=== PATIENT | male | born 1985 | race American Indian/Alaskan Native ===

== ENCOUNTER 2021-05-07 14:02 | Emergency (ER) | payer SELFPAY ==
[2021-05-07] MEDS ORDERED: ONDANSETRON 4 MG/2 ML INJ IV ONE (15:24)
[2021-05-07] MEDS ORDERED: SODIUM CHLORIDE 0.9% 1000 ML 1,000 ML IV ONE (15:24)
[2021-05-07] MEDS ORDERED: ACETAMINOPHEN 325 MG TAB PO ONE (15:24)
--- NOTE | 2021-05-07 15:34 | Emergency Department Report ---
ED Fever HPI - General Chief Complaint: Nausea/Vomiting/Diarrhea Stated Complaint: BODY PAIN Time Seen by Provider: 05/07/21 14:59 - History of Present Illness Initial Comments: Patient is a 35-year-old male presents emergency room complaints of a fever that began yesterday. He has associated chills, generalized body aches, nausea, vomiting, dry cough. He denies any shortness of breath, chest pain, abdominal pain, diarrhea. He has not been vaccinated for COVID-19. He denies any known sick contacts or recent travel. No allergies to medications. No past medical history. ED Review of Systems ROS: Stated complaint: BODY PAIN Other details as noted in HPI Comment: All other systems reviewed and negative ED Past Medical Hx - Past Medical History Previous Medical History?: No - Surgical History Additional Surgical History: R ANKLE 2005. - Social History Smoking Status: Current Every Day Smoker - Medications Home Medications: Home Medications Medication Instructions Recorded Confirmed Last Taken Type Ibuprofen [Motrin] 800 mg PO Q8H #30 tablet 12/16/13 Unknown Rx Benzonatate [Tessalon Perles] 100 mg PO Q8HR PRN #10 capsule 05/07/21 Unknown Rx Ondansetron [Zofran Odt] 4 mg PO Q8HR PRN #10 tab.rapdis 05/07/21 Unknown Rx guaiFENesin ER [Mucinex ER] 600 mg PO Q12H #14 tablet.er 05/07/21 Unknown Rx ED Physical Exam - General Limitations: No Limitations General appearance: alert, in no apparent distress - Head Head exam: Present: atraumatic, normocephalic - Eye Eye exam: Present: normal appearance - ENT ENT exam: Present: mucous membranes moist - Respiratory Respiratory exam: Present: normal lung sounds bilaterally. Absent: respiratory distress, wheezes, rales, rhonchi, stridor, chest wall tenderness, accessory muscle use, decreased breath sounds, prolonged expiratory - Cardiovascular Cardiovascular Exam: Present: normal rhythm, tachycardia - Neurological Exam Neurological exam: Present: alert, oriented X3 - Psychiatric Psychiatric exam: Present: normal affect, normal mood - Skin Skin exam: Present: warm, dry, intact ED Course Vital Signs 05/07/21 05/07/21 14:20 16:41 Temperature 101.3 F H 100.9 F H Pulse Rate 115 H 88 Respiratory 18 16 Rate Blood Pressure 134/80 Blood Pressure 120/71 [Left] O2 Sat by Pulse 93 98 Oximetry ED Medical Decision Making - Lab Data Result diagrams: 05/07/21 15:51 05/07/21 15:51 Lab Results 05/07/21 05/07/21 05/07/21 Range/Units 15:24 15:51 15:51 WBC 8.0 (4.5-11.0) K/mm3 RBC 4.81 (3.65-5.03) M/mm3 Hgb 13.7 (11.8-15.2) gm/dl Hct 43.3 (35.5-45.6) % MCV 90 (84-94) fl MCH 29 (28-32) pg MCHC 32 (32-34) % RDW 14.5 (13.2-15.2) % Plt Count 285 (140-440) K/mm3 Lymph % (Auto) 4.5 L (13.4-35.0) % [place] % (Auto) 14.8 H (0.0-7.3) % Eos % (Auto) 0.8 (0.0-4.3) % Baso % (Auto) 0.3 (0.0-1.8) % Lymph # (Auto) 0.4 L (1.2-5.4) K/mm3 [place] # (Auto) 1.2 H (0.0-0.8) K/mm3 Eos # (Auto) 0.1 (0.0-0.4) K/mm3 Baso # (Auto) 0.0 (0.0-0.1) K/mm3 Seg Neutrophils % 79.6 H (40.0-70.0) % Seg Neutrophils # 6.4 (1.8-7.7) K/mm3 Sodium 136 L (137-145) mmol/L Potassium 5.2 H (3.6-5.0) mmol/L Chloride 99.1 (98-107) mmol/L Carbon Dioxide 21 L (22-30) mmol/L Anion Gap 21 mmol/L BUN 7 L (9-20) mg/dL Creatinine 0.9 (0.8-1.3) mg/dL Estimated GFR > 60 ml/min BUN/Creatinine Ratio 8 % Glucose 86 (75-100) mg/dL Calcium 9.3 (8.4-10.2) mg/dL Total Bilirubin 0.40 (0.1-1.2) mg/dL AST 82 H (5-40) units/L ALT 37 (7-56) units/L Alkaline Phosphatase 100 (35-129) units/L Total Protein 8.2 (6.3-8.2) g/dL Albumin 4.5 (3.9-5) g/dL Albumin/Globulin Ratio 1.2 % Influenza A (Rapid) Negative (Negative) Influenza B (Rapid) Negative (Negative) Vital Signs 05/07/21 05/07/21 14:20 16:41 Temperature 101.3 F H 100.9 F H Pulse Rate 115 H 88 Respiratory 18 16 Rate Blood Pressure 134/80 Blood Pressure 120/71 [Left] O2 Sat by Pulse 93 98 Oximetry - Radiology Data Radiology results: report reviewed Ordering Physician: NEHA MARES Date of Service: 05/07/21 Procedure(s): XR chest routine 2V Accession Number(s): [id number] cc: NEHA MARES Fluoro Time In Minutes: CHEST 2 VIEWS INDICATION: cough, fever. COMPARISON: none FINDINGS: Support devices: None. Heart: Within normal limits. Lungs/pleura: No acute air space or interstitial disease. No pneumothorax. Additional findings: None. IMPRESSION: Normal chest x-ray Signer Name: Stanlye Lopez Jr, MD Signed: 05/07/2021 3:45 PM Workstation Name: [id number] Transcribed By: TTR Dictated By: STANLEY LOPEZ JR, MD Electronically Authenticated By: STANLEY LOPEZ JR, MD Signed Date/Time: 05/07/21 154 DD/ 44 TD/TT: - Medical Decision Making Patient is a 35-year-old male presents emergency room complaints of a fever that began yesterday. He has associated chills, generalized body aches, nausea, vomiting, dry cough. He denies any shortness of breath, chest pain, abdominal pain, diarrhea. He has not been vaccinated for COVID-19. He denies any known sick contacts or recent travel. No allergies to medications. No past medical history. Initial vitals with fever and tachycardia which improved upon repeat. Rapid flu is negative. Labs with mild dehydration, mild hyperkalemia, mild increase in AST. Chest x-ray Normal chest x-ray. Symptoms consistent with URI. Symptoms could likely be related to COVID-19. Patient has no hypoxia no signs of infiltrates on x-ray. Patient was ambulated in the emergency department was able to maintain oxygen saturation of 96% or greater on room air. Discussed all findings with patient. Advised patient Please take medication as prescribed. Increase your fluid intake. Avoid Tylenol or alcohol use. May take ibuprofen as needed for fever. Follow-up with your primary care doctor. Return to emergency room for any new or worsening symptoms. Recommend outpatient COVID-19 testing if positive will need to self quarantine for 10 days from onset of symptoms. Critical care attestation.: If time is entered above; I have spent that time in minutes in the direct care of this critically ill patient, excluding procedure time. ED Disposition Clinical Impression: Dehydration, Elevated AST (SGOT) URI (upper respiratory infection) Qualifiers: URI type: unspecified URI Qualified Code(s): J06.9 - Acute upper respiratory infection, unspecified Disposition: 01 HOME / SELF CARE / HOMELESS Is pt being admited?: No Does the pt Need Aspirin: No Condition: Stable Instructions: Upper Respiratory Infection, Adult Additional Instructions: Please take medication as prescribed. Increase your fluid intake. Avoid Tylenol or alcohol use. May take ibuprofen as needed for fever. Follow-up with your primary care doctor. Return to emergency room for any new or worsening symptoms. Recommend outpatient COVID-19 testing if positive will need to self quarantine for 10 days from onset of symptoms. Prescriptions: guaiFENesin ER [Mucinex ER] 600 mg PO Q12H #14 tablet.er Benzonatate [Tessalon Perles] 100 mg PO Q8HR PRN #10 capsule PRN Reason: cough Ondansetron [Zofran Odt] 4 mg PO Q8HR PRN #10 tab.rapdis PRN Reason: nausea/vomiting Referrals: PRIMARY CARE,MD [Primary Care Provider] - 2-3 Days Forms: Work/School Release Form(ED) Time of Disposition: 16:30 Print Language: VINCENTIAN
--- NOTE | 2021-05-07 15:50 | XRay Report ---
CHEST 2 VIEWS INDICATION: cough, fever. COMPARISON: none FINDINGS: Support devices: None. Heart: Within normal limits. Lungs/pleura: No acute air space or interstitial disease. No pneumothorax. Additional findings: None. IMPRESSION: Normal chest x-ray Signer Name: Stanley Lopez Jr, MD Signed: 05/07/2021 3:45 PM Workstation Name: [id number]
[2021-05-07 16:06] LABS: Basophils % (Auto) 0.3 % (0.0-1.8); Eosinophils # (Auto) 0.1 K/mm3 (0.0-0.4); Eosinophils % (Auto) 0.8 % (0.0-4.3); Hematocrit 43.3 % (35.5-45.6); Hemoglobin 13.7 gm/dl (11.8-15.2); Lymphocytes # (Auto) 0.4 K/mm3 (1.2-5.4); Lymphocytes % (Auto) 4.5 % (13.4-35.0); Mean Corpuscular HGB Conc 32 % (32-34); Mean Corpuscular Volume 90 fl (84-94); Monocytes # (Auto) 1.2 K/mm3 (0.0-0.8); Monocytes % (Auto) 14.8 % (0.0-7.3); Platelet Count 285 K/mm3 (140-440); Red Blood Count 4.81 M/mm3 (3.65-5.03); Red Cell Distribution Width 14.5 % (13.2-15.2)
[2021-05-07 16:22] LABS: Alanine Aminotransferase 37 units/L (7-56); Albumin 4.5 g/dL (3.9-5); BUN/Creatinine Ratio 8; Blood Urea Nitrogen 7 mg/dL (9-20); Calcium 9.3 mg/dL (8.4-10.2); Hemolysis Index 212
[2021-05-07 16:42] VITALS: BP 120/71
== END 2021-05-07 17:08 | disposition home or self-care (01) ==
LOC: ED 14:02
DX: E86.0 Dehydration (principal); J06.9 Acute upper respiratory infection, unspecified; R74.01 Elevation of levels of liver transaminase levels; F17.200 Nicotine dependence, unspecified, uncomplicated; Z79.899 Other long term (current) drug therapy
CPT/HCPCS: 36415; 71046; 80053; 85025; 87400; 96361; 96374; 99284; J2405; J7030; Q0162